=== PATIENT | female | born 1945 | race Hispanic/Latino ===

== ENCOUNTER → 2025-01-09 | Outpatient (CLI) | payer OTHER ==
--- NOTE | 2025-01-10 10:43 | HMCIMG ---
EXAM: CT Cardiac calcium scoring. CLINICAL HISTORY: CAD screening. TECHNIQUE: Thin collimated axial CT cardiac images were obtained. A CT scan is done according to ALARA (As Low As Reasonably Achievable). CONTRAST: None. COMPARISON: None provided. FINDINGS: Calcium Score: VESSEL Number of lesions Volume mm3 Equi. Mass/mg Calcium score LM 0 00.00 00.00 00.00 LAD 0 00.00 00.00 00.00 LCX 0 00.00 00.00 00.00 RCA 1 3.2 --.-- 5.7 Total 1 3.2 --.-- 5.7 IMPRESSION: The calcium score is 5.7. This places the patient above 25th percentile in comparison to a group of patients asymptomatic for coronary artery disease with the same age and gender. This means that >25% of females aged >74 have a calcium score that is lower than the patient's. 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 Recommend correlation with HRCT chest and comparison with prior imaging. /Rosalie
== END | disposition home or self-care (01) ==
LOC: RAH 14:00
PROVIDERS: ATTEND Family Medicine
DX: Z13.6 Encounter for screening for cardiovascular disorders (principal); J84.10 Pulmonary fibrosis, unspecified
CPT/HCPCS: 75571